=== PATIENT | male | born 1950 | race Caucasian/White ===

== ENCOUNTER → 2018-12-15 | Outpatient (CLI) | payer MEDICARE, BC ==
[~2018-12-15] MED LIST: IOPAMIDOL 370 MG/ML 200 ML INFUS..BTL INJ ONE; SODIUM CHLORIDE 0.9% 50ML 50 ML ONE
[2018-12-15 08:25] LABS: BLOOD UREA NITROGEN 19 mg/dL (7-26); BUN/CREATININE RATIO 19 (6-25); CREATININE, SERUM 1.01 mg/dL (0.72-1.25); EST GLOMERULAR FILTRATION RATE > 60 ML/MIN (60-)
--- NOTE | 2018-12-15 10:13 | Diagnostic Imaging Report ---
EXAM: CT abdomen and pelvis without and with contrast INDICATION: Evaluation of renal mass. COMPARISON: None. TECHNIQUE: Abdomen and pelvis was scanned in supine position without and with contrast with renal mass protocol. Non-contrast, arterial, portal venous and delayed phase imaging obtained. Coronal and sagittal reformations were obtained. IV CONTRAST: 100 mL of Isovue 370 ORAL CONTRAST: Water RADIATION DOSE: Total DLP: 1443mGy*cm COMPLICATIONS: None FINDINGS: LINES and TUBES: None. LOWER THORAX: Unremarkable. Minimal dependent atelectasis. HEPATOBILIARY: There is an approximately 2 cm area of arterial enhancement without clear washout on delayed images in the peripheral region of segment 6 of the liver, best seen on series 4 image 17. No biliary ductal dilation. GALLBLADDER: No radio-opaque stones or sludge. No wall thickening. SPLEEN: No splenomegaly. PANCREAS: No focal masses or ductal dilatation. ADRENALS: No adrenal nodules KIDNEYS/URETERS: There is a 1.1 x 1.1 cm hypodense lesion at the posterior upper pole of the left kidney which demonstrates some postcontrast enhancement (15 Hounsfield units on noncontrast images to 45 Hounsfield units on arterial and delayed images) and has possible enhancing septation at its superior component and coarse calcification posteriorly. No other renal masses identified. No nephrolithiasis. No hydronephrosis. On excretory phase images, the ureters are opacified and demonstrate no specific evidence of urothelial lesion. No evidence of mass or hydronephrosis. GI TRACT: There is colonic diverticulosis with no CT evidence of diverticulitis. Otherwise, no abnormal distention, wall thickening, or evidence of bowel obstruction. Appendix is unremarkable. PELVIS: The bladder is opacified on delayed images. No bladder mass. The prostate is enlarged, measuring up to 6.0 cm. LYMPH NODES: No lymphadenopathy. VESSELS: Scattered atherosclerotic calcifications of the abdominal aorta and major branches. Replaced right hepatic artery. PERITONEUM / RETROPERITONEUM: No free air or fluid. BONES AND SOFT TISSUES: No acute fracture or dislocation. Mild degenerative changes of the visualized spine. IMPRESSION: 1. Hypodense lesion at the posterior upper pole of the left kidney measuring 1.1cm demonstrating postcontrast enhancement and possible enhancing septation at the superior component. No other renal masses identified. 2. Approximately 2 cm area of arterial enhancement without clear washout in segment 6 of the liver which may represent a flash filling hemangioma versus perfusional change. 3. Prostatomegaly. Signed by: Sera Mendez MD on 12/15/2018 10:10 AM
== END ==
LOC: CT 07:36
PROVIDERS: ATTEND Urology
DX: D41.00 Neoplasm of uncertain behavior of unspecified kidney (principal)
CPT/HCPCS: 36415; 74178; 82565; 84520; Q9967

== ENCOUNTER → 2021-02-13 | Outpatient (CLI) | payer MEDICARE, BC | LOC: CT 07:40 | PROVIDERS: ATTEND Urology | DX: D41.00 Neoplasm of uncertain behavior of unspecified kidney (principal) | CPT/HCPCS: 74176 ==

== ENCOUNTER 2022-07-04 05:20 | Inpatient (IN) | payer MEDICARE, BC ==
[2022-07-02 10:59] LABS: BASOPHILS % 0.6 % (0.0-1.0); EOSINOPHILS # (AUTO) 0.2 (0.0-0.4); EOSINOPHILS % 2.5 % (0.0-6.0); HEMATOCRIT 48.2 % (38.2-49.6); HEMOGLOBIN 15.6 g/dL (14.0-18.0); LYMPHOCYTES # (AUTO) 1.5 (1.0-3.2); LYMPHOCYTES % 20.3 % (18.0-39.1); MEAN CORPUSCULAR HEMOGLOBIN 33.3 pg (28-32); MEAN CORPUSCULAR HGB CONC 32.4 g/dL (31-35); MEAN CORPUSCULAR VOLUME 102.8 fL (81-99); MONOCYTES # (AUTO) 0.8 (0.2-0.8); MONOCYTES % 11.1 % (4.4-11.3); NEUTROPHILS # (AUTO) 4.7 (2.1-6.9); NEUTROPHILS % 65.2 % (38.7-80.0); PLATELET COUNT 262 x10e3/uL (140-360); RED BLOOD COUNT 4.69 x10e6/uL (4.3-5.7); RED CELL DISTRIBUTION WIDTH 13.3 % (11.7-14.4)
[2022-07-02 11:19] LABS: CALCIUM 9.7 mg/dL (8.4-10.2); CREATININE, SERUM 1.13 mg/dL (0.72-1.25)
[~2022-07-04] VITALS: Ht 182.9 cm; Wt 80.3 kg
[~2022-07-04 05:20] MED LIST changes: +ALLOPURINOL300 MG PO; +ASPIRIN81 MG PO; +DIOVAN80 MG PO; +FINASTERIDE5 MG PO; +FLOMAX0.4 MG PO; -IOPAMIDOL 370 MG/ML 200 ML INFUS..BTL INJ ONE; +KRILL OIL500 MG PO; +METHYL CPG PO; -SODIUM CHLORIDE 0.9% 50ML 50 ML ONE; +VITAMIN D325 MCG PO
[2022-07-04] MEDS ORDERED: CEFTRIAXONE 1 GM VIAL ONE (05:59)
[2022-07-04] MEDS ORDERED: SODIUM CHLORIDE 0.9% 1000ML 1,000 ML ONE (05:59)
[2022-07-04] MEDS ORDERED: GENTAMICIN 80MG/NS 100 ML 200 ML IV ONE (05:59)
[2022-07-04] MEDS ORDERED: ACETAMINOPHEN 1000 MG/100 ML 100 ML IV ONE (06:47)
[2022-07-04] MEDS ORDERED: IOPAMIDOL 300MG/ML 50ML INFUS..BTL IV ONE (06:50)
[2022-07-04] MEDS: D5.45%NS/KCL 20MEQ 1,000 ML IV SCH ×4 (07:45→22:37)
[2022-07-04] MEDS ORDERED: Morphine 2mg Syringe 2 MG/ML SYR IV PRN (07:45)
[2022-07-04] MEDS ORDERED: DIPHENHYDRAMINE HCL 25 MG CAP PO PRN (07:45)
[2022-07-04] MEDS ORDERED: ACETAMINOPHEN/CODEINE 300MG - 30MG TAB PO PRN (07:45)
[2022-07-04] MEDS ORDERED: PHENAZOPYRIDINE HCL 100 MG TAB PO PRN (07:45)
[2022-07-04] MEDS ORDERED: ONDANSETRON HCL INJ 2MG/ML 2ML 2 MG/ML VIAL IV PRN (07:45)
[2022-07-04] MEDS: DOCUSATE SODIUM 100 MG CAP PO SCH ×2 (09:00→16:00)
[2022-07-04] MEDS ORDERED: FENTANYL CITRATE/PF 100MCG/2 ML INJ ONE ×2 (09:33→13:07)
[2022-07-04] MEDS ORDERED: HYDROMORPHONE 1MG/1ML INJ ONE (10:12)
[2022-07-04 10:33] LABS: BASOPHILS % 0.2 % (0.0-1.0); EOSINOPHILS # (AUTO) 0.1 (0.0-0.4); EOSINOPHILS % 0.5 % (0.0-6.0); LYMPHOCYTES # (AUTO) 1.3 (1.0-3.2); LYMPHOCYTES % 9.3 % (18.0-39.1); MEAN CORPUSCULAR HEMOGLOBIN 32.8 pg (28-32); MEAN CORPUSCULAR HGB CONC 31.1 g/dL (31-35); MEAN CORPUSCULAR VOLUME 105.4 fL (81-99); MONOCYTES # (AUTO) 0.1 (0.2-0.8); MONOCYTES % 0.9 % (4.4-11.3); NEUTROPHILS # (AUTO) 12.3 (2.1-6.9); NEUTROPHILS % 88.5 % (38.7-80.0); PLATELET COUNT 220 x10e3/uL (140-360); RED BLOOD COUNT 4.27 x10e6/uL (4.3-5.7); RED CELL DISTRIBUTION WIDTH 13.5 % (11.7-14.4)
[2022-07-04 10:49] LABS: ANION GAP 14.7 mmol/L (8-16); CALCIUM 7.8 mg/dL (8.4-10.2); CREATININE, SERUM 0.99 mg/dL (0.72-1.25); POTASSIUM 4.7 mmol/L (3.5-5.1)
[2022-07-04 12:21] VITALS: BP 121/79
[2022-07-04 12:28] VITALS: BP 121/79
[2022-07-04] MEDS ORDERED: LIDOCAINE HCL 2% LOCAL INJ 5 ML SDV VIAL INJ ONE (12:42)
[2022-07-04] MEDS ORDERED: POVIDONE IODINE 0.05% 0.05 % ML PO ONE (12:42)
[2022-07-04] MEDS ORDERED: ONDANSETRON HCL INJ 2MG/ML 2ML 2 MG/ML VIAL ONE (12:42)
[2022-07-04] MEDS ORDERED: PROPOFOL IV EMULSION 10 MG/ML 20 ML VIAL ONE (12:42)
[2022-07-04] MEDS ORDERED: DEXAMETHASONE SOD PHOS INJ 4 MG/ML SDV ONE (12:42)
[2022-07-04] MEDS ORDERED: GLYCOPYRROLATE INJ 0.2 MG/ML VIAL ONE (12:42)
[2022-07-04] MEDS ORDERED: SEVOFLURANE INHAL SOLN 250 ML PEN BTL ONE (12:42)
[2022-07-04] MEDS ORDERED: FUROSEMIDE INJ 10 MG/ML 4 ML VIAL ONE (12:42)
[2022-07-04] MEDS ORDERED: EPHEDRINE SULFATE INJ 50 MG/ML VIAL ONE (12:42)
[2022-07-04] MEDS ORDERED: ACETAMINOPHEN 1000 MG/100 ML IV PRN (14:00)
[2022-07-04 15:46] VITALS: BP 139/77
[2022-07-04 20:00] VITALS: BP 143/85
[2022-07-04 21:30] VITALS: BP 143/85
[2022-07-05] VITALS (9 sets, daily range): BP systolic 123–146; BP diastolic 64–86
[2022-07-05 04:59] LABS: BASOPHILS % 0.2 % (0.0-1.0); EOSINOPHILS % 0.3 % (0.0-6.0); HEMATOCRIT 39.9 % (38.2-49.6); HEMOGLOBIN 13.4 g/dL (14.0-18.0); LYMPHOCYTES # (AUTO) 1.5 (1.0-3.2); LYMPHOCYTES % 15.3 % (18.0-39.1); MEAN CORPUSCULAR HEMOGLOBIN 32.9 pg (28-32); MEAN CORPUSCULAR HGB CONC 33.6 g/dL (31-35); MONOCYTES # (AUTO) 0.7 (0.2-0.8); MONOCYTES % 7.1 % (4.4-11.3); NEUTROPHILS # (AUTO) 7.7 (2.1-6.9); NEUTROPHILS % 76.7 % (38.7-80.0); PLATELET COUNT 238 x10e3/uL (140-360); RED BLOOD COUNT 4.07 x10e6/uL (4.3-5.7); RED CELL DISTRIBUTION WIDTH 13.6 % (11.7-14.4)
[2022-07-05 05:18] LABS: ANION GAP 14.1 mmol/L (8-16); CALCIUM 7.9 mg/dL (8.4-10.2); CREATININE, SERUM 0.88 mg/dL (0.72-1.25); POTASSIUM 4.1 mmol/L (3.5-5.1)
[2022-07-05] MEDS: D5.45%NS/KCL 20MEQ 1,000 ML IV SCH ×3 (08:09→20:49)
[2022-07-05] MEDS: TAMSULOSIN HCL 0.4 MG CAP PO SCH ×2 (09:00→17:00)
[2022-07-05] MEDS: FINASTERIDE 5 MG TAB PO SCH (09:00)
[2022-07-05] MEDS: VALSARTAN 80 MG TAB PO SCH (09:00)
[2022-07-05] MEDS: ALLOPURINOL 300 MG TAB PO SCH (09:00)
[2022-07-05] MEDS: DOCUSATE SODIUM 100 MG CAP PO SCH ×2 (09:50→17:00)
[2022-07-06] VITALS (8 sets, daily range): BP systolic 111–166; BP diastolic 76–96
[2022-07-06 04:44] LABS: BASOPHILS % 0.3 % (0.0-1.0); EOSINOPHILS # (AUTO) 0.2 (0.0-0.4); HEMATOCRIT 41.6 % (38.2-49.6); HEMOGLOBIN 13.3 g/dL (14.0-18.0); LYMPHOCYTES % 23.4 % (18.0-39.1); MEAN CORPUSCULAR HEMOGLOBIN 32.9 pg (28-32); MONOCYTES # (AUTO) 0.6 (0.2-0.8); MONOCYTES % 7.3 % (4.4-11.3); NEUTROPHILS # (AUTO) 5.7 (2.1-6.9); NEUTROPHILS % 66.8 % (38.7-80.0); PLATELET COUNT 218 x10e3/uL (140-360); RED BLOOD COUNT 4.04 x10e6/uL (4.3-5.7); RED CELL DISTRIBUTION WIDTH 13.5 % (11.7-14.4)
[2022-07-06 05:00] LABS: ANION GAP 13.2 mmol/L (8-16); CALCIUM 8.1 mg/dL (8.4-10.2); CREATININE, SERUM 0.87 mg/dL (0.72-1.25); POTASSIUM 4.2 mmol/L (3.5-5.1)
[2022-07-06] MEDS: DOCUSATE SODIUM 100 MG CAP PO SCH ×2 (08:49→16:34)
[2022-07-06] MEDS: VALSARTAN 80 MG TAB PO SCH (08:55)
[2022-07-06] MEDS: FINASTERIDE 5 MG TAB PO SCH (08:55)
[2022-07-06] MEDS: ALLOPURINOL 300 MG TAB PO SCH (08:55)
[2022-07-06] MEDS: TAMSULOSIN HCL 0.4 MG CAP PO SCH ×2 (08:55→16:34)
[2022-07-06] MEDS ORDERED: IOPAMIDOL 370 MG/ML 100 ML INFUS..BTL INJ ONE (17:44)
[2022-07-06] MEDS ORDERED: ONDANSETRON HCL 4 MG ORAL DISINTEGRATING TAB PO PRN (18:30)
== END 2022-07-06 21:45 | disposition home or self-care (01) | DRG 713 ==
LOC: OR 05:20 → PACU V 09:21 → MED/SURG 11:10
PROVIDERS: ADMIT Urology; ATTEND Urology
PROC: BT14YZZ Fluoroscopy of Kidneys, Ureters and Bladder using Other Contrast (ICD-10-PCS; 2022-07-04)
PROC: 0VT08ZZ Resection of Prostate, Via Natural or Artificial Opening Endoscopic (ICD-10-PCS; principal; 2022-07-04 07:23)
PROC: 3E0K8GC Introduction of Other Therapeutic Substance into Genitourinary Tract, Via Natural or Artificial Opening Endoscopic (ICD-10-PCS; 2022-07-04 07:23)
DX: N40.1 Benign prostatic hyperplasia with lower urinary tract symptoms (principal); N39.0 Urinary tract infection, site not specified; E78.5 Hyperlipidemia, unspecified; R33.8 Other retention of urine; I25.10 Atherosclerotic heart disease of native coronary artery without angina pectoris; I10 Essential (primary) hypertension; E83.51 Hypocalcemia; M19.90 Unspecified osteoarthritis, unspecified site; M10.9 Gout, unspecified; D64.9 Anemia, unspecified; N28.89 Other specified disorders of kidney and ureter; Z90.89 Acquired absence of other organs; Z87.442 Personal history of urinary calculi; Z85.72 Personal history of non-Hodgkin lymphomas; Z98.890 Other specified postprocedural states
CPT/HCPCS: 0223U; 36415; 74178; 74420; 80048; 83735; 85025; 88304; 88305; 94799; C1758; J0696; J1100; J1170; J1580; J1940; J2001; J2405; J3010; J7030; Q9967

== ENCOUNTER 2022-07-30 20:47 | Inpatient (IN) | payer MEDICARE, BC ==
[~2022-07-30] VITALS: Ht 182.9 cm; Wt 78.9 kg
[2022-07-30 21:21] LABS: BASOPHILS # (AUTO) 0.1 (0.0-0.1); BASOPHILS % 0.6 % (0.0-1.0); EOSINOPHILS # (AUTO) 0.5 (0.0-0.4); EOSINOPHILS % 4.3 % (0.0-6.0); HEMATOCRIT 40.4 % (38.2-49.6); HEMOGLOBIN 13.4 g/dL (14.0-18.0); LYMPHOCYTES # (AUTO) 2.9 (1.0-3.2); LYMPHOCYTES % 25.3 % (18.0-39.1); MEAN CORPUSCULAR HGB CONC 33.2 g/dL (31-35); MEAN CORPUSCULAR VOLUME 99.5 fL (81-99); MONOCYTES # (AUTO) 0.9 (0.2-0.8); NEUTROPHILS # (AUTO) 7.1 (2.1-6.9); NEUTROPHILS % 61.2 % (38.7-80.0); PLATELET COUNT 310 x10e3/uL (140-360); RED BLOOD COUNT 4.06 x10e6/uL (4.3-5.7); RED CELL DISTRIBUTION WIDTH 13.6 % (11.7-14.4)
[2022-07-30 21:31] LABS: INR 0.95; PARTIAL THROMBOPLASTIN TIME 27.1 seconds (23.8-35.5); PROTHROMBIN TIME 12.9 seconds (11.9-14.5)
[2022-07-30 21:38] LABS: ANION GAP 16.9 mmol/L (8-16); CALCIUM 9.6 mg/dL (8.4-10.2); CREATININE, SERUM 1.54 mg/dL (0.72-1.25); POTASSIUM 3.9 mmol/L (3.5-5.1)
[2022-07-30 21:46] LABS: CREATINE KINASE MB 1.6 ng/mL (0-5.0)
[2022-07-30 21:50] LABS: BACTERIA,URINE FEW /HPF; CLARITY,URINE TURBID (CLEAR); COLOR,URINE RED (YELLOW); EPITHELIAL CELLS,URINE RARE /LPF; KETONES,URINE NEGATIVE (NEGATIVE); LEUKOCYTE ESTERASE ,URINE NEGATIVE (NEGATIVE); NITRITE,URINE NEGATIVE (NEGATIVE); PROTEIN,URINE DIPSTICK >=300 (NEGATIVE); RBC,URINE >50 /HPF (0-5); URINE UROBILINOGEN 0.2 mg/dL (0.2 - 1)
[2022-07-30] MEDS ORDERED: ONDANSETRON HCL INJ 2MG/ML 2ML 2 MG/ML VIAL IV STA (21:56)
[2022-07-30] MEDS ORDERED: Morphine 4mg INJECTION 4 MG/ML INJ IV ONE (22:00)
[2022-07-30] MEDS ORDERED: SODIUM CHLORIDE 0.9% 1000ML 1,000 ML IV ONE (22:00)
[2022-07-30] MEDS ORDERED: FENTANYL CITRATE/PF 100MCG/2 ML INJ ONE (22:59)
[2022-07-30] MEDS ORDERED: FENTANYL CITRATE/PF 100MCG/2 ML INJ IV ONE (23:00)
[2022-07-30] MEDS ORDERED: Morphine 4mg INJECTION 4 MG/ML INJ IV PRN (23:30)
[2022-07-30] MEDS ORDERED: ONDANSETRON HCL INJ 2MG/ML 2ML 2 MG/ML VIAL IV PRN (23:30)
[2022-07-31] MEDS: SODIUM CHLORIDE 0.9% 1000ML 1,000 ML IV SCH ×3 (00:09→16:14)
[2022-07-31 01:34] LABS: HEMATOCRIT 33.9 % (38.2-49.6); HEMOGLOBIN 11.4 g/dL (14.0-18.0)
[2022-07-31 05:57] LABS: HEMATOCRIT 32.6 % (38.2-49.6); HEMOGLOBIN 11.1 g/dL (14.0-18.0)
[2022-07-31 06:11] LABS: ANION GAP 12.7 mmol/L (8-16); CALCIUM 8.5 mg/dL (8.4-10.2); CREATININE, SERUM 1.06 mg/dL (0.72-1.25); POTASSIUM 4.7 mmol/L (3.5-5.1)
[2022-07-31] MEDS ORDERED: HYDROCODONE/APAP 10MG-325MG TAB PO PRN (09:00)
[2022-07-31] MEDS: FINASTERIDE 5 MG TAB PO SCH (10:00)
[2022-07-31] MEDS: ALLOPURINOL 300 MG TAB PO SCH (10:00)
[2022-07-31 13:49] VITALS: BP 128/78
[2022-07-31 13:50] VITALS: BP 128/78
[2022-07-31 14:03] VITALS: BP 128/78
[2022-07-31 14:27] LABS: HEMATOCRIT 31.1 % (38.2-49.6); HEMOGLOBIN 10.2 g/dL (14.0-18.0)
[2022-07-31 16:09] VITALS: BP 115/65
[2022-07-31] MEDS: TAMSULOSIN HCL 0.4 MG CAP PO SCH (16:13)
[2022-07-31 18:43] LABS: HEMATOCRIT 31.3 % (38.2-49.6); HEMOGLOBIN 10.2 g/dL (14.0-18.0)
[2022-07-31 20:00] VITALS: BP 157/90
[2022-07-31 21:00] VITALS: BP 157/90
[2022-08-01] VITALS (8 sets, daily range): BP systolic 114–139; BP diastolic 70–83
[2022-08-01] MEDS: SODIUM CHLORIDE 0.9% 1000ML 1,000 ML IV SCH (00:39)
[2022-08-01 05:29] LABS: BASOPHILS % 0.5 % (0.0-1.0); EOSINOPHILS # (AUTO) 0.4 (0.0-0.4); EOSINOPHILS % 5.7 % (0.0-6.0); HEMATOCRIT 27.9 % (38.2-49.6); HEMOGLOBIN 9.2 g/dL (14.0-18.0); LYMPHOCYTES # (AUTO) 1.3 (1.0-3.2); MEAN CORPUSCULAR HEMOGLOBIN 32.7 pg (28-32); MEAN CORPUSCULAR VOLUME 99.3 fL (81-99); MONOCYTES # (AUTO) 0.6 (0.2-0.8); MONOCYTES % 7.7 % (4.4-11.3); NEUTROPHILS # (AUTO) 5.1 (2.1-6.9); NEUTROPHILS % 68.7 % (38.7-80.0); PLATELET COUNT 188 x10e3/uL (140-360); RED BLOOD COUNT 2.81 x10e6/uL (4.3-5.7); RED CELL DISTRIBUTION WIDTH 14.2 % (11.7-14.4)
[2022-08-01 05:51] LABS: ANION GAP 9.9 mmol/L (8-16); CALCIUM 8.5 mg/dL (8.4-10.2); CREATININE, SERUM 0.85 mg/dL (0.72-1.25); POTASSIUM 3.9 mmol/L (3.5-5.1)
[2022-08-01] MEDS: TAMSULOSIN HCL 0.4 MG CAP PO SCH ×2 (09:00→16:33)
[2022-08-01] MEDS: IRON SUCROSE 100 MG in SODIUM CHLORIDE 0.9% 100 ML IV SCH (11:17)
[2022-08-01] MEDS: ALLOPURINOL 300 MG TAB PO SCH (16:33)
[2022-08-01] MEDS: FINASTERIDE 5 MG TAB PO SCH (16:33)
[2022-08-02] VITALS: BP 141/81
[2022-08-02 05:06] VITALS: BP 119/73
[2022-08-02 06:03] LABS: BASOPHILS # (AUTO) 0.1 (0.0-0.1); BASOPHILS % 0.6 % (0.0-1.0); EOSINOPHILS # (AUTO) 0.5 (0.0-0.4); EOSINOPHILS % 5.6 % (0.0-6.0); HEMATOCRIT 28.6 % (38.2-49.6); HEMOGLOBIN 9.7 g/dL (14.0-18.0); LYMPHOCYTES # (AUTO) 1.5 (1.0-3.2); LYMPHOCYTES % 16.9 % (18.0-39.1); MEAN CORPUSCULAR HEMOGLOBIN 33.4 pg (28-32); MEAN CORPUSCULAR HGB CONC 33.9 g/dL (31-35); MEAN CORPUSCULAR VOLUME 98.6 fL (81-99); MONOCYTES # (AUTO) 0.7 (0.2-0.8); MONOCYTES % 8.3 % (4.4-11.3); NEUTROPHILS # (AUTO) 5.8 (2.1-6.9); NEUTROPHILS % 68.1 % (38.7-80.0); PLATELET COUNT 181 x10e3/uL (140-360); RED CELL DISTRIBUTION WIDTH 13.7 % (11.7-14.4)
[2022-08-02 06:38] LABS: ANION GAP 12.8 mmol/L (8-16); CALCIUM 8.9 mg/dL (8.4-10.2); CREATININE, SERUM 0.97 mg/dL (0.72-1.25); POTASSIUM 3.8 mmol/L (3.5-5.1)
[2022-08-02 07:43] VITALS: BP 124/73
[2022-08-02 08:23] VITALS: BP 124/73
[2022-08-02] MEDS: IRON SUCROSE 100 MG in SODIUM CHLORIDE 0.9% 100 ML IV SCH (09:00)
[2022-08-02] MEDS: FINASTERIDE 5 MG TAB PO SCH (09:49)
[2022-08-02] MEDS: TAMSULOSIN HCL 0.4 MG CAP PO SCH (09:49)
== END 2022-08-02 10:13 | disposition home or self-care (01) | DRG 812 ==
LOC: ER 22:18 → ERHOLD 23:27 → OBSVTOIN 07-31 08:53 → MED/SURG3 07-31 13:39
PROVIDERS: ADMIT Internal Medicine; ATTEND Internal Medicine
DX: D62 Acute posthemorrhagic anemia (principal); N13.30 Unspecified hydronephrosis; N39.0 Urinary tract infection, site not specified; I10 Essential (primary) hypertension; N40.0 Benign prostatic hyperplasia without lower urinary tract symptoms; M10.9 Gout, unspecified; R31.9 Hematuria, unspecified; N20.0 Calculus of kidney; K57.90 Diverticulosis of intestine, part unspecified, without perforation or abscess without bleeding; N32.89 Other specified disorders of bladder; D64.9 Anemia, unspecified; Z20.822 Contact with and (suspected) exposure to COVID-19
CPT/HCPCS: 36415; 51700; 74176; 80048; 81001; 82550; 82553; 83970; 84484; 84550; 85014; 85018; 85025; 85610; 85730; 87086; 93005; 94799; 99284; G0378; J0696; J1756; J2270; J2405; J3010; J7030; J7050